=== PATIENT | male | born 1995 | race Caucasian/White ===

== ENCOUNTER 2018-11-30 12:57 | Emergency (ER) | payer BC ==
[~2018-11-30] VITALS: Ht 170.2 cm; Wt 64.9 kg
[2018-11-30 13:10] VITALS: Ht 170.2 cm; Wt 64.9 kg
[2018-11-30 14:29] LABS: BASOPHIL % 0.7 % (0-2); PLATELET COUNT 238 x10^3mcL (130-400); RED CELL DISTRIBUTION WIDTH 13.1 % (11.5-14.5)
[2018-11-30 14:38] LABS: CALCIUM 8.5 mg/dL (8.5-10.1); CARBON DIOXIDE 27.2 mmol/L (21-32); CHLORIDE SERUM 103 mmol/L (98-107); CREATININE SERUM 0.7 mg/dL (0.7-1.3); GFR1 > 60 mL/min; GLUCOSE SERUM 89 mg/dL (74-106); POTASSIUM SERUM 3.7 mmol/L (3.5-5.1); SODIUM SERUM 142 mmol/L (136-145)
[2018-11-30 15:10] LABS: AMPHETAMINE QUAL UR NONE DETECTED (See below)
[2018-11-30 15:39] VITALS: BP 109/77
== END 2018-11-30 15:39 | disposition home or self-care (01) ==
LOC: ED 12:57
PROVIDERS: Emergency Medicine
DX: F19.10 Other psychoactive substance abuse, uncomplicated (principal); F12.10 Cannabis abuse, uncomplicated; Z02.79 Encounter for issue of other medical certificate
CPT/HCPCS: 36415; 82693